=== PATIENT | female | born 2000 ===

== ENCOUNTER 2020-01-20 03:51 | Emergency (ER) | payer SELFPAY ==
--- NOTE | 2020-01-20 04:49 | XRay Report ---
HISTORY:MAIN: PT FELL TODAY AND LANDED ON BOTH (LEFT AND RIGHT) HANDS; PAIN IN BOTH HANDSpainful left hand COMPARISON: None. TECHNIQUE: AP lateral and obliques views of both hands were obtained FINDINGS: Bones: No fracture or dislocation. Joint spaces: Maintained. Soft tissues: No significant abnormality. Additional findings: None. IMPRESSION: 1. No significant abnormality. Signer Name: Steve Cheatham MD Signed: 01/20/2020 4:44 AM Workstation Name: [id number]
[2020-01-20 07:05] VITALS: BP 119/72
[2020-01-20] MEDS ORDERED: LIDOCAINE (2%) 20 MG/1 ML VIAL 20 ML MDV INFILTRATI ONE (07:43)
[2020-01-20] MEDS ORDERED: HYDROcodone/ACETAMINOPHEN 10-325MG TAB PO ONE (07:43)
[2020-01-20] MEDS ORDERED: TETANUS,DIPH,PERTUSS(ACELL) VACCINE 0.5 ML SYRINGE IM ONE (07:43)
--- NOTE | 2020-01-20 08:14 | Emergency Department Report ---
ED Upper Extremity Inj HPI - General Chief Complaint: Extremity Injury, Upper Stated Complaint: BILATERAL RING FINGER INJURY Time Seen by Provider: 01/20/20 07:27 Source: patient Mode of arrival: Ambulatory Limitations: No Limitations - History of Present Illness Initial Comments: This is a 19-year-old female nontoxic, well nourished in appearance, no acute signs of distress presents to the ED with c/o of bilateral ring finger nail avulsion status post fall that occurred this morning. Patient denies any other trauma. Patient denies any numbness, tingling, fever, chills, nausea, vomiting, chest pain, shortness of breath, headache, stiff neck. Patient denies any joint swelling or joint redness. Patient denies decreased range of motion. Patient denies any allergies or significant past medical history. MD Complaint: Injury to:: left, right, finger -: This morning Other Extremity Injury: Fingers: Left, Right Other Injuries: none Severity scale (0 -10): 3 Improves With: none Worsens With: none Context: fall Associated Symptoms: denies other symptoms. denies: weakness, numbness, neck pain, suspects foreign body, nausea/vomiting, heard/felt popping sensat - Related Data Previous Rx's Medication Instructions Recorded Last Taken Type Acetaminophen/Codeine [Tylenol 1 tab PO Q6H PRN #12 tab 01/20/20 Unknown Rx /Codeine # 3 tab] Sulfamethoxazole/Trimethoprim 1 each PO BID #14 tablet 01/20/20 Unknown Rx [Bactrim DS TAB] Allergies Allergy/AdvReac Type Severity Reaction Status Date / Time No Known Allergies Allergy Unverified 01/20/20 04:06 ED Review of Systems ROS: Stated complaint: BILATERAL RING FINGER INJURY Other details as noted in HPI Constitutional: denies: chills, fever Eyes: denies: eye pain, eye discharge, vision change ENT: denies: ear pain, throat pain Respiratory: denies: cough, shortness of breath, wheezing Cardiovascular: denies: chest pain, palpitations Endocrine: no symptoms reported Gastrointestinal: denies: abdominal pain, nausea, diarrhea Genitourinary: denies: urgency, dysuria, discharge Musculoskeletal: denies: back pain, joint swelling, arthralgia Skin: denies: rash, lesions Neurological: denies: headache, weakness, paresthesias Psychiatric: denies: anxiety, depression Hematological/Lymphatic: denies: easy bleeding, easy bruising ED Past Medical Hx - Past Medical History Previous Medical History?: No - Surgical History Past Surgical History?: No - Social History Smoking Status: Never Smoker Substance Use Type: None - Medications Home Medications: Home Medications Medication Instructions Recorded Confirmed Last Taken Type Acetaminophen/Codeine [Tylenol 1 tab PO Q6H PRN #12 tab 01/20/20 Unknown Rx /Codeine # 3 tab] Sulfamethoxazole/Trimethoprim 1 each PO BID #14 tablet 01/20/20 Unknown Rx [Bactrim DS TAB] ED Physical Exam - General Limitations: No Limitations General appearance: alert, in no apparent distress - Head Head exam: Present: atraumatic, normocephalic - Extremities Exam Extremities exam: Present: normal inspection, full ROM, tenderness, normal capillary refill. Absent: joint swelling - Expanded Upper Extremity Exam Left General: Present: normal inspection Shoulder Exam: Present: normal inspection (Bilateral exam), full ROM (Bilateral exam). Absent: tenderness Upper Arm exam: Present: normal inspection (Bilateral exam), full ROM (Bilateral exam). Absent: tenderness Elbow exam: Present: normal inspection (Bilateral exam), full ROM (Bilateral exam). Absent: tenderness Forearm Wrist exam: Present: normal inspection (Bilateral exam), full ROM (Bilateral exam). Absent: tenderness Hand Wrist exam: Present: normal inspection (Bilateral exam), full ROM (Bilateral exam), tenderness (Bilateral exam), nail avulsion (Bilateral exam ring finger). Absent: swelling, abrasion, laceration, ecchymosis, deformity, crepidus, dislocation, erythema, amputation, subungual hematoma Vascular: Present: vascular compromise, normal capillary refill - Back Exam Back exam: Present: normal inspection, full ROM - Neurological Exam Neurological exam: Present: alert, oriented X3, normal gait - Psychiatric Psychiatric exam: Present: normal affect, normal mood - Skin Skin exam: Present: warm, dry, intact, normal color. Absent: rash ED Course Vital Signs 01/20/20 01/20/20 03:54 06:30 Temperature 98.4 F 98.1 F Pulse Rate 111 H 90 Respiratory 18 15 Rate Blood Pressure 125/59 Blood Pressure 119/72 [Left] O2 Sat by Pulse 99 98 Oximetry - Reevaluation(s) Reevaluation #1: 01/20/20 08:11 Patient is speaking in full sentences with no signs of distress noted. - Procedure Description Procedures done: Under sterile field, I used Betadine to clean the area. I then used 40 mL of normal saline to flush the area. I then used 2% lidocaine plain and injected 3 mL to each finger of ring for digital block. I then used iris scissors to dissect the nailbed and removed both nails from the ring fingers bilaterally. I then applied a Xeroform and sterile 4 x 4 dressing. Minimal bleeding noted but is under control. Patient tolerated procedure well with no signs of distress. ED Medical Decision Making - Medical Decision Making [id number] female that presents with nail avulsion. Patient is stable and was examined by me. X-rays are unremarkable and dictated by radiologist. Patient received tetanus in ER. Patient also received Luebbering for pain and patient's family members currently present at the bedside and stated will drive the patient home after discharge due to possible drowsiness. Patient also be discharged with Bactrim. Patient was educated on proper wound care. Patient was instructed to follow-up with a primary care doctor in 3-5 days or if symptoms worsen and continue return to emergency room as soon as possible. At time of discharge, the patient does not seem toxic or ill in appearance. No acute signs of distress noted. Patient agrees to discharge treatment plan of care. No further questions noted by the patient. Critical care attestation.: If time is entered above; I have spent that time in minutes in the direct care of this critically ill patient, excluding procedure time. ED Disposition Clinical Impression: Strain of finger Nail avulsion, finger Qualifiers: Encounter type: initial encounter Qualified Code(s): S61.309A - Unspecified open wound of unspecified finger with damage to nail, initial encounter Fall Qualifiers: Encounter type: initial encounter Qualified Code(s): W19.XXXA - Unspecified fall, initial encounter Disposition: DC-01 TO HOME OR SELFCARE Is pt being admited?: No Does the pt Need Aspirin: No Condition: Stable Instructions: Toenail/Fingernail Removal (ED), Acetaminophen/Codeine (By mouth) Additional Instructions: Follow-up with a primary care doctor in 3-5 days or if symptoms worsen and continue return to emergency room as soon as possible. Do not operate any machinery while taking Tylenol with codeine as this may cause drowsiness. Prescriptions: Sulfamethoxazole/Trimethoprim [Bactrim DS TAB] 1 each PO BID #14 tablet Acetaminophen/Codeine [Tylenol /Codeine # 3 tab] 1 tab PO Q6H PRN #12 tab PRN Reason: Pain , Severe (7-10) Referrals: PRIMARY CAREMD [Primary Care Provider] - 3-5 Days ANDERSON VILLALOBOS MD [Staff Physician] - 3-5 Days [facility] [Outside] - 3-5 Days Forms: Work/School Release Form(ED)
== END 2020-01-20 08:46 | disposition home or self-care (01) ==
LOC: ED 03:51
DX: S61.305A Unspecified open wound of left ring finger with damage to nail, initial encounter (principal); S61.304A Unspecified open wound of right ring finger with damage to nail, initial encounter; S66.315A Strain of extensor muscle, fascia and tendon of left ring finger at wrist and hand level, initial encounter; S56.415A Strain of extensor muscle, fascia and tendon of right ring finger at forearm level, initial encounter; Z79.899 Other long term (current) drug therapy; W19.XXXA Unspecified fall, initial encounter; Y93.89 Activity, other specified; Y92.89 Other specified places as the place of occurrence of the external cause; Y99.8 Other external cause status
CPT/HCPCS: 90471; 90715; 99283